=== PATIENT | female | born 1965 | race Caucasian/White ===

== ENCOUNTER 2016-08-23 11:11 | Emergency (ER) | payer OTHER ==
[2016-08-23 12:42] LABS: HEMOGLOBIN 12.5 gm/dl (12.3-15.3); RED BLOOD COUNT 3.89 M/UL (4.00-5.10); WHITE BLOOD COUNT 6.3 K/UL (4.5-11.0)
[2016-08-23 12:58] LABS: BUN/CREATININE RATIO 24 (0-10)
== END 2016-08-23 16:05 | disposition home or self-care (01) ==
LOC: ER1 11:11
PROVIDERS: Specialist/Technologist Athletic Trainer
DX: I50.9 Heart failure, unspecified (principal); J40 Bronchitis, not specified as acute or chronic; F10.129 Alcohol abuse with intoxication, unspecified; F17.200 Nicotine dependence, unspecified, uncomplicated; J44.9 Chronic obstructive pulmonary disease, unspecified; Z79.899 Other long term (current) drug therapy
CPT/HCPCS: 36415; 71010; 80053; 83880; 85025; 96374; 96375; 99285; G0480; J1200; J2930